=== PATIENT | female | born 1990 | race American Indian/Alaskan Native ===

== ENCOUNTER 2016-06-13 09:45 | Emergency (ER) | payer SELFPAY ==
--- NOTE | 2016-06-13 11:20 | Emergency Department Report ---
HPI - General Chief Complaint: Sore Throat Time Seen by Provider: 06/13/16 11:11 - HPI HPI: Patient here reports that she's been having sinus problems for over a week and she started coughing on Saturday. She reports sore throat that started on Saturday. Sore throat is scratchy until out of 10. Denies any nausea vomiting. Denies any fever. Reports cough is dry cough. Reports sinus pressure and nasal congestion. No [id number] medication use. ED Past Medical Hx - Past Medical History Previous Medical History?: Yes Hx Headaches / Migraines: Yes - Surgical History Past Surgical History?: No - Family History Family history: hypertension - Social History Smoking Status: Current Every Day Smoker Substance Use Type: None - Medications Home Medications: Home Medications Medication Instructions Recorded Confirmed Last Taken Type Amoxicillin [Amoxicillin TAB] 875 mg PO BID #14 tablet 06/13/16 Unknown Rx Cetirizine HCl [ZyrTEC] 10 mg PO QDAY #14 tab.rapdis 06/13/16 Unknown Rx Fluticasone [Flonase] 1 spray NS QDAY #1 bottle 06/13/16 Unknown Rx Ibuprofen [Motrin] 600 mg PO Q8H PRN #15 tablet 06/13/16 Unknown Rx ED Review of Systems ROS: Stated complaint: COUGH Other details as noted in HPI Comment: All other systems reviewed and negative Constitutional: denies: chills, fever ENT: throat pain, congestion. denies: ear pain Respiratory: cough. denies: orthopnea, shortness of breath, SOB with exertion, SOB at rest, stridor, wheezing Cardiovascular: denies: chest pain, palpitations, edema, syncope Gastrointestinal: denies: abdominal pain, nausea, vomiting Musculoskeletal: denies: back pain, arthralgia Skin: denies: rash Neurological: denies: headache, weakness, vertigo Physical Exam - Physical Exam Vital Signs: Vital Signs 06/13/16 09:56 Temperature 98.6 F Pulse Rate 89 Respiratory 18 Rate Blood Pressure 136/87 O2 Sat by Pulse 100 Oximetry General: This is a 25-year-old female well-nourished well-developed in no acute distress. Physical Exam: Head: Normocephalic atraumatic Mouth: Moist, no pharyngeal exudate or erythema. Uvula is midline and oral airway is patent. No gingival enlargement or dental tenderness. No facial swelling. No peritonsillar abscesses. Neck: Supple, no C-spine tenderness, no tracheal deviation. Nontender to palpate. no adenopathy Ears: Bilateral TMs congested without erythema .bilateral EAC without any redness swelling or drainage Eyes: Bilateral pupils equal and reactive to light, bilateral EOM intact. Bilateral sclera and conjunctiva without injection. Normal accommodation Nose: Mucosa moist, positive congestion with erythema . Positive clear drainage. maxillary sinuses tender to palpate. Lungs: Clear to auscultate bilaterally no rhonchi wheezes or rales. Normal work of breathing extremity; No CCE. +2 pulses. No neurovascular compromise Cardiovascular: S1-S2, regular rate rhythm. No murmurs. Skin: clean Dry and intact no rash no lesions Psych: Normal mood and behavior ED Course Vital Signs 06/13/16 09:56 Temperature 98.6 F Pulse Rate 89 Respiratory 18 Rate Blood Pressure 136/87 O2 Sat by Pulse 100 Oximetry - Reevaluation(s) Reevaluation #1: 06/13/16 11:45 Patient had uneventful ED stay ED Medical Decision Making - Medical Decision Making ED course: Patient was sinus infection and pharyngitis. I discussed treatment plan and diagnosis. Patient patient was understanding. Condition discharged home with prescription for Zyrtec, motrin,Flonase and amoxicillin. Smoking cessation encouraged Critical care attestation.: If time is entered above; I have spent that time in minutes in the direct care of this critically ill patient, excluding procedure time. ED Disposition Clinical Impression: Nicotine abuse, Encounter for smoking cessation counseling Sinusitis Qualifiers: Sinusitis location: unspecified location Chronicity: acute Recurrence: not specified as recurrent Qualified Code(s): J01.90 - Acute sinusitis, unspecified Pharyngitis Qualifiers: Pharyngitis/tonsillitis etiology: unspecified etiology Qualified Code(s): J02.9 - Acute pharyngitis, unspecified Disposition: DISCHARGED TO HOME OR SELFCARE Is pt being admited?: No Does the pt Need Aspirin: No Condition: Stable Instructions: Sinusitis (ED), Pharyngitis (ED), How to Stop Smoking (ED) Additional Instructions: Please increase her fluid intake Take antibiotic as prescribed Please follow-up with your primary care doctor if he does not have a primary care physician then he can follow-up with outside Medical Center. Take Motrin to relieve sore throat as instructed You can use saline nasal spray to flexion nostrils without. Prescriptions: Amoxicillin [Amoxicillin TAB] 875 mg PO BID #14 tablet Cetirizine HCl [ZyrTEC] 10 mg PO QDAY #14 tab.rapdis Fluticasone [Flonase] 1 spray NS QDAY #1 bottle Ibuprofen [Motrin] 600 mg PO Q8H PRN #15 tablet PRN Reason: Pain Referrals: PRIMARY CARE, [Primary Care Provider] - 06/15/[address] [facility] [Outside] - 06/15/16 Forms: Work/School Release Form(ED)
[2016-06-13 12:03] VITALS: BP 127/80
== END 2016-06-13 12:03 | disposition home or self-care (01) ==
LOC: ED 09:45
DX: J01.90 Acute sinusitis, unspecified (principal); J02.9 Acute pharyngitis, unspecified; F19.10 Other psychoactive substance abuse, uncomplicated; G43.909 Migraine, unspecified, not intractable, without status migrainosus; F17.200 Nicotine dependence, unspecified, uncomplicated
CPT/HCPCS: 99282

== ENCOUNTER 2017-05-20 12:02 | Emergency (ER) | payer OTHER ==
[2017-05-20 13:05] VITALS: BP 131/79
--- NOTE | 2017-05-20 14:48 | Emergency Department Report ---
Blank Doc - Documentation Documentation: Patient is a 26-year-old black female presenting with spotting after finding out she is . Patient estimates U 24 6 weeks by dates. Patient's been having spotting for the past 2 days. Patient states his pain was. Patient level DRAWN AND URINALYS and ABO Rh.
--- NOTE | 2017-05-20 15:05 | Emergency Department Report ---
ED HPI - General Chief complaint: Vaginal Bleeding Stated complaint: VAGINAL BLEEDING/DISCHARGE Time Seen by Provider: 05/20/17 14:32 Source: patient Mode of arrival: Ambulatory Limitations: No Limitations - History of Present Illness Initial comments: This is a 26-year-old female [id number] nontoxic, well nourished in appearance, no acute signs of distress presents to the ED with c/o of vaginal bleeding x3 days. Patient denies any abdominal pain, back pain, nausea, vomiting, chest pain , shortness of breathe, fever, chills, headache, numbness, tingling. Patient denies any allergies or PMH. Patient stated last menstrual cycle is on 2017. Patient stated has an [facility] appointment this month on the . MD Complaint: vaginal bleeding -: days(s) (3) Radiation: none Severity: mild Severity scale (0 -10): 0 Consistency: constant Improves with: none Worsens with: none Associated symptoms: vaginal bleeding. denies: nausea/vomiting, vaginal discharge, abdominal pain, dysuria, headache, vision changes, malaise, dysparuenia, rash, seizure, shortness of breath, syncope, weakness Vaginal bleeding: light :: Yes Pre- care: none - Related Data : 3 Para: 0 Ab: 1 Previous Rx's Medication Instructions Recorded Last Taken Type Amoxicillin [Amoxicillin TAB] 875 mg PO BID #14 tablet 06/13/16 Unknown Rx Cetirizine HCl [ZyrTEC] 10 mg PO QDAY #14 tab.rapdis 06/13/16 Unknown Rx Fluticasone [Flonase] 1 spray NS QDAY #1 bottle 06/13/16 Unknown Rx Ibuprofen [Motrin] 600 mg PO Q8H PRN #15 tablet 06/13/16 Unknown Rx Allergies Allergy/AdvReac Type Severity Reaction Status Date / Time No Known Allergies Allergy Verified 05/20/17 12:59 ED Review of Systems ROS: Stated complaint: VAGINAL BLEEDING/DISCHARGE Other details as noted in HPI Constitutional: denies: chills, fever Eyes: denies: eye pain, eye discharge, vision change ENT: denies: ear pain, throat pain Respiratory: denies: cough, shortness of breath, wheezing Cardiovascular: denies: chest pain, palpitations Endocrine: no symptoms reported Gastrointestinal: denies: abdominal pain, nausea, diarrhea Genitourinary: denies: urgency, dysuria, discharge Musculoskeletal: denies: back pain, joint swelling, arthralgia Skin: denies: rash, lesions Neurological: denies: headache, weakness, paresthesias Psychiatric: denies: anxiety, depression Hematological/Lymphatic: denies: easy bleeding, easy bruising ED Past Medical Hx - Past Medical History Hx Headaches / Migraines: Yes - Surgical History Past Surgical History?: No - Social History Smoking Status: Never Smoker Substance Use Type: None - Medications Home Medications: Home Medications Medication Instructions Recorded Confirmed Last Taken Type Amoxicillin [Amoxicillin TAB] 875 mg PO BID #14 tablet 06/13/16 Unknown Rx Cetirizine HCl [ZyrTEC] 10 mg PO QDAY #14 tab.rapdis 06/13/16 Unknown Rx Fluticasone [Flonase] 1 spray NS QDAY #1 bottle 06/13/16 Unknown Rx Ibuprofen [Motrin] 600 mg PO Q8H PRN #15 tablet 06/13/16 Unknown Rx ED Physical Exam - General Limitations: No Limitations General appearance: alert, in no apparent distress - Head Head exam: Present: atraumatic, normocephalic - Eye Eye exam: Present: normal appearance Pupils: Present: normal accommodation - ENT ENT exam: Present: normal exam, mucous membranes moist - Neck Neck exam: Present: normal inspection, full ROM - Respiratory Respiratory exam: Present: normal lung sounds bilaterally. Absent: respiratory distress, wheezes, rales, rhonchi, stridor, chest wall tenderness, accessory muscle use, decreased breath sounds, prolonged expiratory - Cardiovascular Cardiovascular Exam: Present: regular rate, normal rhythm, normal heart sounds. Absent: bradycardia, tachycardia, irregular rhythm, systolic murmur, diastolic murmur, rubs, gallop - GI/Abdominal GI/Abdominal exam: Present: soft, normal bowel sounds. Absent: distended, tenderness, rebound, rigid - Rectal Rectal exam: Present: deferred - Extremities Exam Extremities exam: Present: normal inspection, full ROM, normal capillary refill - Back Exam Back exam: Present: normal inspection, full ROM - Neurological Exam Neurological exam: Present: alert, oriented X3, normal gait - Psychiatric Psychiatric exam: Present: normal affect, normal mood - Skin Skin exam: Present: warm, dry, intact, normal color. Absent: rash ED Course Vital Signs 05/20/17 12:59 Temperature 98.5 F Pulse Rate 81 Respiratory 16 Rate Blood Pressure 131/79 O2 Sat by Pulse 98 Oximetry - Reevaluation(s) Reevaluation #1: 05/20/17 15:26 Patient is speaking in full sentences with no signs of distress noted. - Consultations Consultation #1: 05/20/17 15:26 Patient has been consulted with Dr. Silverio about patient history, physical exam , and labs and examined and screened patient and agrees to ED plan of care. ED Medical Decision Making - Lab Data Result diagrams: 05/20/17 14:54 05/20/17 14:54 - Medical Decision Making This is a 26-year-old female that presents with threatened miscarriage. The patient was examined by me and Dr. Silverio. Labs within normal limits. Quantitative serum test obtained and low at 200s. Ultrasound has been obtained and dictated by the radiologist with no IUP. There is no abdominal pain or tenderness. Patient is notified of the US report with no questions noted. Patient was instructed to follow-up with a [facility] in 2 days or come back to the ED for a re-evalaution of Quantittive serum test/US OB. At time of discharge, the patient does not seem toxic or ill in appearance. No acute signs of distress noted. Patient agrees to discharge treatment plan of care. No further questions noted by the patient. Critical care attestation.: If time is entered above; I have spent that time in minutes in the direct care of this critically ill patient, excluding procedure time. ED Disposition Clinical Impression: Threatened miscarriage Disposition: DC-01 TO HOME OR SELFCARE Is pt being admited?: No Does the pt Need Aspirin: No Condition: Stable Instructions: Threatened Miscarriage (ED) Additional Instructions: Follow-up with a [facility] in 2 days or if symptoms worsen and continue return to emergency room as soon as possible. Return to the ED or [facility] in 2 days for a repeat serum quantitative test and possible ultrasound. Referrals: DIONI KINGSTON MD [Staff Physician] - 3-5 Days [facility] [Provider Group] - 3-5 Days [facility] [Outside] - 3-[address] [facility] [Outside] - 3-5 Days Forms: Work/School Release Form(ED)
[2017-05-20 15:16] LABS: Basophils % (Auto) 0.4 % (0.0-1.8); Eosinophils # (Auto) 0.1 K/mm3 (0.0-0.4); Eosinophils % (Auto) 0.9 % (0.0-4.3); Hematocrit 36.6 % (30.3-42.9); Hemoglobin 12.3 gm/dl (10.1-14.3); Lymphocytes % (Auto) 33.9 % (13.4-35.0); Mean Corpuscular HGB Conc 34 % (30-34); Mean Corpuscular Hemoglobin 30 pg (28-32); Mean Corpuscular Volume 90 fl (79-97); Monocytes # (Auto) 0.6 K/mm3 (0.0-0.8); Monocytes % (Auto) 6.5 % (0.0-7.3); Platelet Count 352 K/mm3 (140-440); Red Blood Count 4.07 M/mm3 (3.65-5.03); Red Cell Distribution Width 13.7 % (13.2-15.2)
[2017-05-20 15:44] LABS: BUN/Creatinine Ratio 10; Blood Urea Nitrogen 7 mg/dL (7-17); Calcium 9.4 mg/dL (8.4-10.2); Hemolysis Index 10
[2017-05-20 16:11] LABS: Bilirubin,Urine NEG (Negative); Blood,Urine LG (Negative); Color,Urine Yellow (Yellow); Mucus,Urine 1+ /HPF; Protein,Urine <15 mg/dL mg/dL (Negative); Urobilinogen,Urine < 2.0 mg/dL (<2.0)
--- NOTE | 2017-05-20 17:05 | Ultrasound Report ---
FINAL REPORT PROCEDURE: Transabdominal obstetrical ultrasound. TECHNIQUE: Real-time transabdominal sonography of the uterus, placenta, amniotic fluid, adnexa, and fetus was performed with image documentation. Measurements were obtained to determine age/size. M-mode Doppler was used to document heartbeat. CPT 32033 HISTORY: Vaginal spotting, approximately 5 weeks . COMPARISON: No prior studies are available for comparison. FINDINGS: Image quality is quite limited because the patient's bladder was not distended. The uterus measures 7.9 centimeters x 3.7 centimeters x 4.3 centimeters. The myometrium is grossly normal. The endometrial echo complex is poorly visualized. There is no definite intrauterine gestational sac. The right ovary is normal in size. The left ovary is not visualized. IMPRESSION: Very limited study. No definite intrauterine gestational sac.
--- NOTE | 2017-05-20 17:10 | Ultrasound Report ---
FINAL REPORT PROCEDURE: Transvaginal obstetrical ultrasound. TECHNIQUE: Real-time transvaginal sonography of the uterus, placenta, amniotic fluid, adnexa, and fetus was performed with image documentation. Measurements were obtained to determine age/size. M-mode Doppler was used to document heartbeat. CPT 34642 HISTORY: Vaginal spotting, approximately 5 weeks . COMPARISON: No prior studies are available for comparison. FINDINGS: The uterus measures approximately 8.0 centimeters x 3.7 centimeters x 4.3 centimeters. The myometrium appears uniform. There are no focal uterine masses. The endometrial echo complex appears normal. The endometrium measures approximately 5.1 millimeters. There is no evidence of an intrauterine gestational sac. Correlation with a quantitative beta HCG value is recommended. The right ovary appears normal in size. There is a complex cyst in the right ovary measuring 1.9 centimeters in maximum dimension. The left ovary appears normal in size. There is a small cyst adjacent to the left ovary measuring 1.1 centimeters in maximum diameter. There is no fluid in the cul-de-sac. IMPRESSION: No evidence of an intrauterine gestational sac.
== END 2017-05-20 17:44 | disposition home or self-care (01) ==
LOC: ED 12:02
DX: O20.0 Threatened abortion (principal); O99.351 Diseases of the nervous system complicating pregnancy, first trimester; G43.909 Migraine, unspecified, not intractable, without status migrainosus; Z3A.00 Weeks of gestation of pregnancy not specified
CPT/HCPCS: 36415; 76801; 76817; 80048; 81001; 84702; 85025; 86900; 86901; 99284